=== PATIENT | male | born 1980 | race Caucasian/White ===

== ENCOUNTER 2019-12-13 11:18 | Observation (INO) | payer BC ==
[2019-12-13] MEDS ORDERED: Nitroglycerin 2% Ointment 1 INCH/1 GM Packet ONE (11:37)
[2019-12-13] MEDS ORDERED: Aspirin Chewable 81 MG TAB ONE (11:37)
[2019-12-13 11:38] LABS: #Basophils 0.1 thou/uL (0.0-0.2); #Lymphocytes 1.4 thou/uL (1.20-3.40); #Monocytes 0.5 thou/uL (0.11-0.59); #Neutrophils 3.1 thou/uL (1.40-6.50); %Basophils 1.3 % (0.0-1.0); %Eosinophils 0.4 % (0.0-10.0); %Lymphocytes 27.5 % (21.0-51.0); %Monocytes 10.4 % (0.0-10.0); %Neutrophils 60.4 % (42.0-75.0); Hemoglobin 14.3 g/dL (14.0-18.0); Mean Corpuscular HGB CONC 34.3 g/dL (32.0-36.0); Mean Corpuscular Hemoglobin 32.9 pg (27.0-31.0); Mean Platelet Volume 6.8 fL (7.4-10.4); Platelet Count 203 thou/uL (130-400); RBC Distribution Width 11.6 % (11.5-14.5); Red Blood Cell (RBC) Count 4.36 mill/uL (4.70-6.10); White Blood Cell (WBC) Count 5.2 thou/uL (4.8-10.8)
--- NOTE | 2019-12-13 11:59 | RAD ---
EXAM: Portable chest PROVIDED CLINICAL HISTORY: Chest pain COMPARISON: None FINDINGS: Cardiac and mediastinal silhouette is within normal limits. No focal consolidation, pleural fluid or pneumothorax evident. IMPRESSION: No evidence for an acute cardiopulmonary process.
[2019-12-13 12:03] LABS: ALT (SGPT) 16 U/L (8-55); AST (SGOT) 18 U/L (5-34); Albumin 4.8 g/dL (3.5-5.0); Alkaline Phosphatase 63 U/L (40-110); Anion Gap 13 mmol/L (10-20); BUN (Urea Nitrogen) 9 mg/dL (8.9-20.6); Bilirubin, Total 0.5 mg/dL (0.2-1.2); CK (CPK) 66 U/L (30-200); Calc. Creatinine Clearance 0 mL/min (70-130); Calcium 9.3 mg/dL (7.8-10.44); Carbon Dioxide 25 mmol/L (22-29); Chloride 106 mmol/L (98-107); Estimated GFR-MDRD Greater than 90; Globulin 2.5 g/dL (2.4-3.5); Glucose 93 mg/dL (70-105); Lipase 13 U/L (8-78); Potassium 4.1 mmol/L (3.5-5.1); Protein, Total 7.3 g/dL (6.0-8.3); Sodium 140 mmol/L (136-145)
[2019-12-13 14:41] VITALS: BMI 23.6
[2019-12-13] MEDS ORDERED: Sodium Chloride 0.9% 1,000 ML IV SCH (14:46)
[2019-12-13] MEDS ORDERED: Ondansetron ODT 4 MG TAB SL PRN (14:46)
[2019-12-13] MEDS ORDERED: Ondansetron PF 4 MG/2 ML Vial IVP PRN (14:46)
[2019-12-13] MEDS ORDERED: Albuterol Sulfate 2.5 mg/3 ml Neb NEB PRN (16:29)
[2019-12-13] MEDS ORDERED: Nitroglycerin 0.4 MG TAB (25 Tab Bottle) PO PRN (16:29)
--- NOTE | 2019-12-13 17:29 | HP ---
PRIMARY CARE PHYSICIAN: None. CHIEF COMPLAINT: Chest pain. HISTORY OF PRESENT ILLNESS: This is a 39-year-old white male without any past medical history, who has never really went to a doctor. 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 He was fairly persistent until last Friday when it became much more severe and he had a sharp pain to the left of the sternum radiating around to his left axilla, that sharp pain lasted for about 5 to 6 hours, was associated with nausea and was quite severe. He almost went to the hospital at that time, may eventually that off and he had a persistent chest pressure. He eventually went to Urgent Care today, they told him to go to the emergency room. He had a negative chest x-ray, negative EKG, and negative cardiac markers. He was given aspirin and Nitro-Bid transdermal in the emergency room, which relieved his chest pain. The patient is now comfortable on observation floor without any symptoms. REVIEW OF SYSTEMS: CONSTITUTIONAL: No fevers. He has subtle chills over the weekend and has had dressed fairly warmly, people around him were quite hot. EYES: No double vision or blurred vision. ENT: No congestion, drainage, or sore throat. CARDIOVASCULAR: See HPI. No palpitations or racing heart. PULMONARY: No coughing, wheezing, or shortness of breath. GASTROINTESTINAL: No abdominal pain. He had nausea on Friday with severe chest pain, but none now. No vomiting. No diarrhea or constipation. GENITOURINARY: No dysuria or hematuria. MUSCULOSKELETAL: No new muscle aches or joint pains. He has some chronic back pain from an injury at work a couple of years ago. SKIN: No rashes or lesions noted. NEUROLOGIC: No numbness, tingling, or focal weakness. PAST MEDICAL HISTORY: Asthma, controlled with intermittent albuterol. PAST SURGICAL HISTORY: None. SOCIAL HISTORY: The patient smokes a pack of cigarettes per day for the last 20 years. He also drinks about 12 alcoholic drinks over the weekends, none during the week. No illicit drugs. He is and lives with his and his youngest child, the other two are out in college. FAMILY HISTORY: His mother had heart disease and hypertension, and his half brother had a heart attack at age 43. ALLERGIES: NO KNOWN DRUG ALLERGIES. CURRENT MEDICATIONS: The patient is on albuterol inhaler, uses when needed. PHYSICAL EXAMINATION: VITAL SIGNS: Blood pressure 114/75, pulse 74, respirations 16, O2 saturation 98% on room air, and temperature 97.6. GENERAL: This is a well-developed, well-nourished white male, in no acute distress. HEENT: Pupils are equal, round, and reactive to light. Oropharynx clear without lesions, erythema, or exudate. NECK: Supple. No lymphadenopathy. No thyroid nodules or enlargement. No JVD. HEART: Regular rate and rhythm. No murmurs, rubs, or gallops. No chest wall tenderness to palpation. LUNGS: Clear to auscultation bilaterally. No wheezes, crackles, or rhonchi. ABDOMEN: Soft. Nontender to palpation. Normoactive bowel sounds. No hepatosplenomegaly or other masses. EXTREMITIES: No clubbing, cyanosis, or edema. SKIN: No rashes or other lesions noted. NEUROLOGIC: Intact strength and sensation in all extremities. No facial droop. LABORATORY DATA: CBC within normal limits. Coagulation profile with a negative D-dimer. Complete metabolic panel is within normal limits. Troponins are negative x2. Brain natriuretic peptide was normal. IMAGING STUDIES: Chest x-ray, I did review the chest x-ray done in the emergency room along with the radiologist's report shows a normal cardiac silhouette. No infiltrates. No acute cardiopulmonary process. EKG, I did review the EKG done in the emergency room. It does show normal sinus rhythm. There is some left axis deviation and incomplete right bundle branch block. No ST-segment changes or T-wave inversions. ASSESSMENT: 1. Chest pain. The patient's pain is concerning for possible cardiac etiology and did resolve with nitroglycerin. He does have a strong family history as well as a risk factor of smoking. We will put the patient in observation overnight. We will monitor on site monitor and complete the third set of cardiac markers. If these remain negative, then in the morning we will do an exercise nuclear stress test on him for risk stratification. Should this be abnormal, then he will need a cardiac consult for likely a cardiac catheterization. If it is negative, then may need to look for the gastrointestinal or musculoskeletal sources with this pain. 2. Tobacco abuse. I recommend the patient to quit smoking. 3. Gastrointestinal prophylaxis, put the patient on Protonix daily. 4. Deep venous thrombosis prophylaxis. We will put the patient on sequential compression devices while in bed and encourage him to ambulate frequently. CODE STATUS: The patient is a full code. Should he be incapacitated, his would be his medical decision maker, her name is Colleen Young. Job ID: [id number]
[2019-12-13] MEDS ORDERED: Acetaminophen 325 MG TAB PO PRN (22:31)
[2019-12-14 05:47] LABS: Cardiac Risk 3.4 (Less than 4.5)
[2019-12-14] MEDS ORDERED: Aspirin 325 mg Enteric Coated Tablet PO SCH (09:00)
--- NOTE | 2019-12-14 11:44 | NM ---
EXAM: Nuclear Medicine Cardiac SPECT with EF and wall motion: HISTORY: Chest pain Protocol: Exam was performed using treadmill stress with Anjel protocol. The patient is injected with 32.4 millicuries of technetium 99m sestamibi intravenously for stress im ages. The patient is injected with 10.10 millicuries of technetium 99 sestamibi intravenously for resting i mages. Multiple SPECT images are performed in the short axis, vertical long axis, and horizontal long axis. FINDINGS: No scan evidence for infarct or ischemia. TID:0.93 LHR:0.51 EDV:130 mL EF:67% Wall motion:Unremarkable IMPRESSION: Unremarkable cardiac SPECT with EF and wall motion. EDV 130 mL. No scan evidence for overt infarct or ischemia.
[2019-12-14 12:03] VITALS: BP 129/83; TEMP 97.8
--- NOTE | 2019-12-14 22:53 | DIS ---
DATE OF ADMISSION: 12/13/2019 DATE OF DISCHARGE: 12/14/2019 DISCHARGE DISPOSITION: Home. FOLLOWUP: Follow up with primary care physician at [facility] in 1 week. ALLERGIES: NO KNOWN DRUG ALLERGIES. THE PATIENT WAS SEEN AND EXAMINED ON THE DAY OF DISCHARGE. DENIES ANY NEW COMPLAINTS. NO CHEST PAIN, SHORTNESS OF BREATH, OR PALPITATIONS REPORTED. SIGNIFICANT LABS: Troponins negative. Fasting lipid profile showed triglyceride 132, cholesterol 213, LDL 125, HDL 62. CBC showed WBC 5.2 with hemoglobin 14.3. D-dimer was negative. Creatinine 0.85, sodium 140, potassium 4.1. BRIEF HOSPITAL COURSE: The patient is a 39-year-old male, who presented to the emergency room with chest discomfort. Please refer to the history and physical dated December 13, 2019 for further details. The patient was admitted to the hospital with a diagnosis of chest discomfort, rule out acute coronary syndrome. His serial troponins remain negative. He underwent exercise Cardiolite stress test that was negative for reversible ischemia. His ejection fraction was 67% without any wall motion abnormality. He appears stable for discharge. He is chest pain free at this time. FINAL DIAGNOSES: 1. Chest discomfort, acute coronary syndrome ruled out. 2. Tobacco dependence, the patient was counseled to quit smoking. 3. Hyperlipidemia. 4. Mild intermittent asthma. 5. Suspected anxiety. The patient understands the above plan of care. Job ID: [id number]
--- NOTE | 2019-12-18 15:45 | EKG ---
Test Reason : Blood Pressure : / mmHG Vent. Rate : 083 BPM Atrial Rate : 083 BPM P-R Int : 172 ms QRS Dur : 108 ms QT Int : 368 ms P-R-T Axes : 054 -30 060 degrees QTc Int : 432 ms Normal sinus rhythm Left axis deviation Incomplete right bundle branch block Abnormal ECG Confirmed by ALEXANDREA MARTÍNEZ, BILLY ([id number]), scientific publications editor PALOMO FARRAR ([id number]) on 12/18/2019 3:44:55 PM Referred By: Confirmed By:BILLY LECHUGA MD
== END 2019-12-14 12:30 | disposition home or self-care (01) ==
LOC: ERS 11:18 → ERHOLD 12:37 → 2SW 14:28
PROVIDERS: ADMIT Emergency Medicine; ATTEND Emergency Medicine
DX: R07.89 Other chest pain (principal); F17.210 Nicotine dependence, cigarettes, uncomplicated; E78.5 Hyperlipidemia, unspecified; J45.20 Mild intermittent asthma, uncomplicated
CPT/HCPCS: 36415; 71045; 78452; 80053; 80061; 82550; 83690; 83880; 84484; 85025; 85379; 93005; 93017; 94760; 96360; A9500; G0378

== ENCOUNTER 2022-11-12 09:16 | Outpatient (CLI) | payer BC | END 2022-11-12 09:17 | disposition home or self-care (01) | LOC: SCSRAD 09:16 | PROVIDERS: ATTEND Nurse Practitioner Family | DX: M25.421 Effusion, right elbow (principal) ==

== ENCOUNTER 2022-11-29 14:14 | Outpatient (CLI) | payer OTHER | END 2022-11-29 14:15 | disposition home or self-care (01) | LOC: SCSRAD 14:14 | PROVIDERS: ATTEND Nurse Practitioner Family | DX: M25.521 Pain in right elbow (principal); M25.421 Effusion, right elbow ==